=== PATIENT | female | born 1965 | race African-American/Black ===

== ENCOUNTER 2020-12-09 09:49 | Emergency (ER) | payer MEDICAID ==
[~2020-12-09] VITALS: Ht 172.7 cm; Wt 110.0 kg
[2020-12-09 10:36] LABS: BASOPHILS % 0.6 % (0.0-2.0); EOSINOPHILS % 2.9 % (0.0-5.0); HEMATOCRIT. 29.1 % (36.0-48.0); HEMOGLOBIN. 9.2 g/dL (12.0-16.0); LYMPHOCYTES % 18.8 % (20.0-50.0); MEAN CORPUSCULAR HEMOGLOBIN 25.7 pg (28.0-32.0); MEAN CORPUSCULAR VOLUME 81.7 fL (81.0-99.0); MONOCYTES % 8.8 % (2.0-8.0); NEUTROPHILS % 68.9 % (40.0-76.0); PLATELET 275 x1000/uL (130-400); RED BLOOD CELL COUNT 3.57 mill/uL (4.2-5.4); RED CELL DISTRIBUTION WIDTH 16.5 % (11.6-14.6)
[2020-12-09 10:40] LABS: CHLORIDE 110 mEq/L (98-107)
[2020-12-09 13:08] VITALS: BP 196/86
== END 2020-12-09 14:27 | disposition home or self-care (01) ==
LOC: ER 09:49
DX: E11.649 Type 2 diabetes mellitus with hypoglycemia without coma (principal); E87.5 Hyperkalemia; I11.9 Hypertensive heart disease without heart failure; J84.9 Interstitial pulmonary disease, unspecified; D64.9 Anemia, unspecified; Z79.4 Long term (current) use of insulin
CPT/HCPCS: 36415; 71045; 80053; 82962; 84484; 85025; 93005; 99285

== ENCOUNTER 2020-12-14 19:44 | Emergency (ER) | payer MEDICAID ==
[~2020-12-14] VITALS: Ht 167.6 cm; Wt 100.0 kg
[2020-12-14 21:13] LABS: BASOPHILS % 0.5 % (0.0-2.0); EOSINOPHILS % 1.3 % (0.0-5.0); HEMATOCRIT. 27.9 % (36.0-48.0); HEMOGLOBIN. 8.9 g/dL (12.0-16.0); LYMPHOCYTES % 12.5 % (20.0-50.0); MEAN CORPUSCULAR HEMOGLOBIN 26.1 pg (28.0-32.0); MEAN CORPUSCULAR VOLUME 81.4 fL (81.0-99.0); MEAN PLATELET VOLUME 8.8 fl (7.4-10.4); MONOCYTES % 7.4 % (2.0-8.0); NEUTROPHILS % 78.3 % (40.0-76.0); PLATELET 253 x1000/uL (130-400); RED BLOOD CELL COUNT 3.43 mill/uL (4.2-5.4); RED CELL DISTRIBUTION WIDTH 16.5 % (11.6-14.6)
[2020-12-14 21:18] LABS: CHLORIDE 112 mEq/L (98-107)
[2020-12-15 00:11] VITALS: BP 168/74
== END 2020-12-15 00:12 | disposition home or self-care (01) ==
LOC: ER 19:44
DX: E11.649 Type 2 diabetes mellitus with hypoglycemia without coma (principal); D64.9 Anemia, unspecified; I10 Essential (primary) hypertension
CPT/HCPCS: 36415; 80053; 82962; 85025; 93005; 99284

== ENCOUNTER 2023-08-15 19:03 | Emergency (ER) | payer SELFPAY ==
[~2023-08-15] VITALS: Ht 165.1 cm; Wt 70.0 kg
[2023-08-15 19:05] VITALS: O2SAT 99
[2023-08-15 20:28] LABS: BASOPHILS % 0.5 % (0.0-2.0); EOSINOPHILS % 3.9 % (0.0-5.0); HEMOGLOBIN. 10.4 g/dL (12.0-16.0); LYMPHOCYTES % 29.4 % (20.0-50.0); MEAN CORPUSCULAR HEMOGLOBIN 26.3 pg (28.0-32.0); MEAN CORPUSCULAR HGB CONC 30.7 g/dL (31.0-37.0); MEAN CORPUSCULAR VOLUME 85.6 fL (81.0-99.0); MEAN PLATELET VOLUME 9.4 fl (7.4-10.4); MONOCYTES % 9.7 % (2.0-8.0); NEUTROPHILS % 56.5 % (40.0-76.0); PLATELET 266 x1000/uL (130-400); RED BLOOD CELL COUNT 3.97 mill/uL (4.2-5.4); RED CELL DISTRIBUTION WIDTH 14.2 % (11.6-14.6); WHITE BLOOD COUNT 4.6 x1000/uL (4.5-11.0)
[2023-08-15] MEDS ORDERED: DEXTROSE 10% WATER 500 ML IV ONE (20:30)
[2023-08-15 20:41] LABS: ALANINE AMINOTRANSFERASE 16 IU/L (10-49); ALBUMIN 3.9 g/dL (3.2-4.8); ASPARTATE AMINOTRANSFERASE 24 IU/L (<34); BILIRUBIN TOTAL 0.5 mg/dL (0.1-1.0); CALCIUM 9.4 mg/dL (8.7-10.4); CARBON DIOXIDE 25 mEq/L (21-32); CHLORIDE 111 mEq/L (98-107); PROTEIN TOTAL 7.8 g/dL (6.0-8.3); SODIUM 142 mEq/L (136-145); UREA NITROGEN BLOOD 35 mg/dL (9-23)
[2023-08-15 20:50] LABS: GLUCOSE 39 mg/dL (70-105)
[2023-08-15] MEDS ORDERED: AMLODIPINE 5MG TABLET PO ONE ×2 (21:45→23:00)
[2023-08-15 21:59] VITALS: TEMP 98.3
[2023-08-15 23:24] VITALS: BP 213/112; PULSE 94; RESP 18
== END 2023-08-15 23:58 | disposition home or self-care (01) ==
LOC: ER 19:03
DX: E11.649 Type 2 diabetes mellitus with hypoglycemia without coma (principal); E11.9 Type 2 diabetes mellitus without complications; I16.0 Hypertensive urgency
CPT/HCPCS: 36415; 80053; 82962; 85025; 96365; 99284

== ENCOUNTER 2024-12-10 14:44 | Inpatient (IN) | payer MEDICARE, MEDICAID ==
[~2024-12-10] VITALS: Ht 170.2 cm; Wt 83.7 kg
[~2024-12-10 14:44] MED LIST: AMLO5TAB88; ATOR-2 PO; EMPA25TA; INSU100I28 SUBCUT; ISOS10TA2 PO; LABE300T36 PO; LISI10TA26 PO; NIFE90TA69; SACU1TAB PO; SEMA0.258; SODI650T PO
[2024-12-10 15:35] LABS: BASOPHILS % 0.8 % (0.0-2.0); EOSINOPHILS % 4.2 % (0.0-5.0); HEMATOCRIT. 23.7 % (36.0-48.0); HEMOGLOBIN. 7.4 g/dL (12.0-16.0); LYMPHOCYTES % 22.4 % (20.0-50.0); MEAN CORPUSCULAR HEMOGLOBIN 26.3 pg (28.0-32.0); MEAN CORPUSCULAR HGB CONC 31.2 g/dL (31.0-37.0); MEAN CORPUSCULAR VOLUME 84.5 fL (81.0-99.0); MEAN PLATELET VOLUME 9.3 fl (7.4-10.4); MONOCYTES % 8.7 % (2.0-8.0); NEUTROPHILS % 63.9 % (40.0-76.0); PLATELET 291 x1000/uL (130-400); RED BLOOD CELL COUNT 2.81 mill/uL (4.2-5.4)
[2024-12-10 15:41] LABS: CHLORIDE 109 mEq/L (98-107); POTASSIUM 4.3 mEq/L (3.5-5.1); SODIUM 140 mEq/L (136-145)
[2024-12-10 15:42] LABS: CARBON DIOXIDE 24 mEq/L (21-32)
[2024-12-10 15:43] LABS: CALCIUM 8.9 mg/dL (8.7-10.4)
[2024-12-10 15:47] LABS: GLUCOSE 76 mg/dL (70-105); UREA NITROGEN BLOOD 37 mg/dL (9-23)
[2024-12-10 15:49] LABS: TROPONIN I HIGH SENSITIVITY 11 ng/L (3.0-34)
[2024-12-10] MEDS ORDERED: FERR-63 PO (16:21)
[2024-12-10] MEDS ORDERED: SACU1TAB7 PO (16:21)
[2024-12-10] MEDS ORDERED: AMLO5TAB88 PO (16:22)
[2024-12-10] MEDS ORDERED: EMPA25TA PO (16:22)
[2024-12-10] MEDS ORDERED: EMPAGLIFLOZIN 10MG TABLET PO SCH (17:00)
[2024-12-10] MEDS: FUROSEMIDE 40MG/4ML VIAL IVP SCH (18:13)
[2024-12-10] MEDS: AMLODIPINE 5MG TABLET PO SCH (18:13)
[2024-12-10] MEDS ORDERED: ACETAMINOPHEN 325MG TABLET PO PRN (19:15)
[2024-12-10 20:29] LABS: INR 1.1; PROTHROMBIN TIME 11.6 sec (9.6-11.0)
[2024-12-10 20:30] LABS: ALANINE AMINOTRANSFERASE 14 IU/L (10-49); ALBUMIN 3.2 g/dL (3.2-4.8); ASPARTATE AMINOTRANSFERASE 15 IU/L (<34); BILIRUBIN DIRECT 0.3 mg/dL (<=3.0); BILIRUBIN TOTAL 0.9 mg/dL (0.1-1.0); PROTEIN TOTAL 6.3 g/dL (6.0-8.3)
[2024-12-10] MEDS ORDERED: SACUBITRIL/VALSARTAN 24MG/26MG TABLET PO SCH (21:00)
[2024-12-10] MEDS: LABETALOL HCL 100MG TABLET PO SCH (21:47)
[2024-12-10] MEDS: ENOXAPARIN 30MG/0.3ML SYR SUBCUT SCH (21:47)
[2024-12-10] MEDS: ATORVASTATIN CALCIUM 40MG TABLET PO SCH (21:47)
[2024-12-10 22:29] VITALS: BP 178/74; PULSE 68; RESP 21; TEMP 36.3; O2SAT 87
[2024-12-10 22:45] VITALS: PULSE 68; RESP 18; O2SAT 99
[2024-12-10 23:04] VITALS: BP 175/71; PULSE 66; RESP 19; O2SAT 95
[2024-12-10] MEDS: SACUBITRIL/VALSARTAN 49MG/51MG TABLET PO SCH (23:41)
[2024-12-11] VITALS (10 sets, daily range): BP systolic 145–182; BP diastolic 67–95; PULSE 67–78; RESP 0–22; TEMP 36.7–36.9; O2SAT 95–99
[2024-12-11] MEDS: CLONIDINE 0.1MG TABLET PO PRN (05:07)
[2024-12-11 07:17] LABS: BASOPHILS % 0.9 % (0.0-2.0); EOSINOPHILS % 4.6 % (0.0-5.0); HEMATOCRIT. 25.7 % (36.0-48.0); HEMOGLOBIN. 7.8 g/dL (12.0-16.0); LYMPHOCYTES % 22.4 % (20.0-50.0); MEAN CORPUSCULAR HEMOGLOBIN 25.8 pg (28.0-32.0); MEAN CORPUSCULAR HGB CONC 30.5 g/dL (31.0-37.0); MEAN CORPUSCULAR VOLUME 84.6 fL (81.0-99.0); MEAN PLATELET VOLUME 9.5 fl (7.4-10.4); MONOCYTES % 8.1 % (2.0-8.0); PLATELET 282 x1000/uL (130-400); RED BLOOD CELL COUNT 3.03 mill/uL (4.2-5.4); WHITE BLOOD COUNT 4.1 x1000/uL (4.5-11.0)
[2024-12-11 07:42] LABS: FERRITIN 169 ng/mL (10-291); FOLIC ACID (FOLATE) SERUM 6.13 ng/mL (>5.38); VITAMIN B12 SERUM 929 pg/mL (211-911)
[2024-12-11 08:16] LABS: CARBON DIOXIDE 24 mEq/L (21-32); CHLORIDE 109 mEq/L (98-107); POTASSIUM 4.3 mEq/L (3.5-5.1); SODIUM 142 mEq/L (136-145)
[2024-12-11 08:17] LABS: CALCIUM 8.9 mg/dL (8.7-10.4)
[2024-12-11 08:22] LABS: UREA NITROGEN BLOOD 35 mg/dL (9-23)
[2024-12-11 08:23] LABS: ALANINE AMINOTRANSFERASE 14 IU/L (10-49); ASPARTATE AMINOTRANSFERASE 15 IU/L (<34)
[2024-12-11 08:24] LABS: ALBUMIN 3.1 g/dL (3.2-4.8); TOTAL IRON BINDING CAPACITY 229 ug/dl (250-425)
[2024-12-11 08:26] LABS: THYROID STIMULATING HORMONE 2.28 uIU/mL (0.55-4.78)
[2024-12-11] MEDS: EMPAGLIFLOZIN 10MG TABLET PO SCH (08:33)
[2024-12-11 08:46] LABS: GLUCOSE 44 mg/dL (70-105)
[2024-12-11 08:56] LABS: IRON 47 ug/dL (50-170)
[2024-12-11] MEDS ORDERED: DEXTROSE 50% WATER 50ML SYRINGE IV PRN (09:00)
[2024-12-11] MEDS: BLOOD SUGAR DIAGNOSTIC STRIP TEST SCH (11:20)
[2024-12-11 13:18] LABS: CLARITY URINE CLOUDY (CLEAR); COLOR URINE YELLOW (YELLOW); PH URINE 7.5 (4.5-8.0)
[2024-12-11 13:19] LABS: GLUCOSE URINE 1+ (NEGATIVE); KETONES URINE NEGATIVE (NEGATIVE); LEUKOCYTE ESTERASE URINE NEGATIVE (NEGATIVE); NITRITE URINE NEGATIVE (NEGATIVE); OCCULT BLOOD URINE NEGATIVE (NEGATIVE); PROTEIN URINE 2+ (NEGATIVE); UROBILINOGEN URINE 0.2 E.U./dL (0.2-1.0)
[2024-12-11 13:46] LABS: BACTERIA URINE 4+; RBC URINE NONE SEEN /hpf (0-2); SQUAMOUS EPITHELIAL CELL URINE NONE SEEN /lpf (RARE/1+); WBC URINE 0-2 /hpf (0-2)
[2024-12-11] MEDS: ASCORBIC ACID 250 MG TABLET PO SCH (17:44)
[2024-12-11] MEDS: FERROUS SULFATE 325MG TABLET PO SCH (17:45)
[2024-12-12] VITALS: BP 182/72; PULSE 72; RESP 22; TEMP 37.2; O2SAT 98
[2024-12-12] MEDS: HYDRALAZINE 20MG/ML VIAL IV PRN (03:59)
[2024-12-12 04:00] VITALS: BP 170/64; PULSE 67; RESP 19; TEMP 37; O2SAT 99
[2024-12-12 07:10] LABS: BASOPHILS % 0.8 % (0.0-2.0); EOSINOPHILS % 5.6 % (0.0-5.0); HEMATOCRIT. 23.2 % (36.0-48.0); HEMOGLOBIN. 7.3 g/dL (12.0-16.0); LYMPHOCYTES % 26.4 % (20.0-50.0); MEAN CORPUSCULAR HEMOGLOBIN 26.7 pg (28.0-32.0); MEAN CORPUSCULAR HGB CONC 31.5 g/dL (31.0-37.0); MEAN CORPUSCULAR VOLUME 84.6 fL (81.0-99.0); MEAN PLATELET VOLUME 9.3 fl (7.4-10.4); MONOCYTES % 9.7 % (2.0-8.0); NEUTROPHILS % 57.5 % (40.0-76.0); PLATELET 266 x1000/uL (130-400); RED BLOOD CELL COUNT 2.75 mill/uL (4.2-5.4); RED CELL DISTRIBUTION WIDTH 16.9 % (11.6-14.6); WHITE BLOOD COUNT 4.8 x1000/uL (4.5-11.0)
[2024-12-12 07:26] LABS: POTASSIUM 4.3 mEq/L (3.5-5.1)
[2024-12-12 07:28] LABS: CALCIUM 8.6 mg/dL (8.7-10.4)
[2024-12-12 07:32] LABS: CREATININE 2.2 mg/dL (0.6-1.0)
[2024-12-12 08:00] VITALS: BP 150/60; PULSE 68; RESP 13; TEMP 36.7; O2SAT 99
[2024-12-12] MEDS: LABETALOL HCL 100MG TABLET PO SCH (11:32)
[2024-12-12] MEDS: AMLODIPINE 5MG TABLET PO NR (11:33)
[2024-12-12 12:00] VITALS: BP 155/70; PULSE 67; RESP 27; TEMP 36.7; O2SAT 99
[2024-12-12 16:00] VITALS: BP 158/71; PULSE 97; RESP 27; TEMP 36.8; O2SAT 99
[2024-12-12 19:34] VITALS: BP 177/81; PULSE 72; RESP 16; TEMP 36.9; O2SAT 97
[2024-12-12] MEDS ORDERED: DEXTROSE 50% WATER 50ML SYRINGE IV PRN ×2 (21:45)
[2024-12-13] VITALS (7 sets, daily range): BP systolic 116–163; BP diastolic 59–72; PULSE 74–79; RESP 20–28; TEMP 36.5–37.3; O2SAT 88–99
[2024-12-13 06:14] LABS: BASOPHILS % 0.6 % (0.0-2.0); EOSINOPHILS % 3.2 % (0.0-5.0); HEMATOCRIT. 23.6 % (36.0-48.0); HEMOGLOBIN. 7.5 g/dL (12.0-16.0); LYMPHOCYTES % 16.8 % (20.0-50.0); MEAN CORPUSCULAR HEMOGLOBIN 26.7 pg (28.0-32.0); MEAN CORPUSCULAR HGB CONC 31.6 g/dL (31.0-37.0); MEAN CORPUSCULAR VOLUME 84.5 fL (81.0-99.0); MEAN PLATELET VOLUME 9.8 fl (7.4-10.4); MONOCYTES % 8.8 % (2.0-8.0); NEUTROPHILS % 70.6 % (40.0-76.0); PLATELET 259 x1000/uL (130-400); RED BLOOD CELL COUNT 2.79 mill/uL (4.2-5.4); RED CELL DISTRIBUTION WIDTH 17.4 % (11.6-14.6); WHITE BLOOD COUNT 6.3 x1000/uL (4.5-11.0)
[2024-12-13 06:20] LABS: CALCIUM 9.2 mg/dL (8.7-10.4); CARBON DIOXIDE 25 mEq/L (21-32); CHLORIDE 107 mEq/L (98-107); POTASSIUM 4.4 mEq/L (3.5-5.1); SODIUM 142 mEq/L (136-145)
[2024-12-13 06:25] LABS: CREATININE 2.7 mg/dL (0.6-1.0); GLUCOSE 158 mg/dL (70-105)
[2024-12-13 06:26] LABS: UREA NITROGEN BLOOD 42 mg/dL (9-23)
[2024-12-13] MEDS: BLOOD SUGAR DIAGNOSTIC STRIP TEST SCH (06:45)
[2024-12-13] MEDS: INSULIN LISPRO 100 UNITS/ML SUBCUT SCH (06:47)
[2024-12-13] MEDS ORDERED: BLOOD SUGAR DIAGNOSTIC STRIP TEST SCH (06:50)
[2024-12-13] MEDS: FUROSEMIDE 40MG TABLET PO SCH ×2 (08:18→17:30)
[2024-12-13] MEDS: AMLODIPINE 10MG TABLET PO SCH (08:18)
[2024-12-13] MEDS ORDERED: AMLO10TA80 PO (09:25)
[2024-12-13] MEDS ORDERED: LIP40 PO (09:25)
[2024-12-13] MEDS ORDERED: ASCO-494 PO (09:25)
[2024-12-13] MEDS ORDERED: FURO40TA5 MT (09:25)
[2024-12-13] MEDS ORDERED: HYDR50TA40 MT (09:25)
[2024-12-13 12:50] LABS: HEMATOCRIT 22.8 % (36.0-48.0); MEAN CORPUSCULAR HEMOGLOBIN 25.8 pg (28.0-32.0); MEAN CORPUSCULAR HGB CONC 30.8 g/dL (31.0-37.0); MEAN CORPUSCULAR VOLUME 83.5 fL (81.0-99.0); PLATELET 264 x1000/uL (130-400); RED BLOOD CELL COUNT 2.73 mill/uL (4.2-5.4); RED CELL DISTRIBUTION WIDTH 17.5 % (11.6-14.6); WHITE BLOOD COUNT 5.4 x1000/uL (4.5-11.0)
[2024-12-14] VITALS: BP 132/57; PULSE 81; RESP 19; TEMP 36.9; O2SAT 95
[2024-12-14 04:00] VITALS: BP 157/66; PULSE 83; RESP 16; TEMP 36.8; O2SAT 100
[2024-12-14 08:00] VITALS: BP 163/72; PULSE 79; RESP 24; TEMP 37.1; O2SAT 98
[2024-12-14 10:02] LABS: BASOPHILS % 0.6 % (0.0-2.0); EOSINOPHILS % 3.6 % (0.0-5.0); HEMATOCRIT. 23.6 % (36.0-48.0); HEMOGLOBIN. 7.2 g/dL (12.0-16.0); LYMPHOCYTES % 14.8 % (20.0-50.0); MEAN CORPUSCULAR HEMOGLOBIN 25.9 pg (28.0-32.0); MEAN CORPUSCULAR HGB CONC 30.6 g/dL (31.0-37.0); MEAN CORPUSCULAR VOLUME 84.5 fL (81.0-99.0); MEAN PLATELET VOLUME 9.2 fl (7.4-10.4); MONOCYTES % 9.8 % (2.0-8.0); NEUTROPHILS % 71.2 % (40.0-76.0); PLATELET 264 x1000/uL (130-400); RED BLOOD CELL COUNT 2.79 mill/uL (4.2-5.4); WHITE BLOOD COUNT 6.1 x1000/uL (4.5-11.0)
[2024-12-14 10:18] LABS: POTASSIUM 4.3 mEq/L (3.5-5.1)
[2024-12-14 10:24] LABS: CREATININE 2.7 mg/dL (0.6-1.0)
[2024-12-14 12:00] VITALS: BP 148/65; PULSE 77; RESP 28; TEMP 37.2; O2SAT 93
[2024-12-14 16:00] VITALS: BP 153/66; PULSE 81; RESP 25; TEMP 37.1; O2SAT 98
[2024-12-14] MEDS: FUROSEMIDE 40MG/4ML VIAL IVP SCH (16:14)
[2024-12-14 20:00] VITALS: BP 167/80; PULSE 89; RESP 18; O2SAT 95
[2024-12-15] VITALS (9 sets, daily range): BP systolic 129–171; BP diastolic 64–75; PULSE 74–90; RESP 17–30; TEMP 36.9474–38.6; O2SAT 95–99
[2024-12-15] MEDS: ACETAMINOPHEN 325MG TABLET PO PRN (00:20)
[2024-12-15 06:55] LABS: BASOPHILS % 0.6 % (0.0-2.0); EOSINOPHILS % 3.9 % (0.0-5.0); LYMPHOCYTES % 19.1 % (20.0-50.0); MEAN CORPUSCULAR HEMOGLOBIN 26.7 pg (28.0-32.0); MEAN CORPUSCULAR HGB CONC 32.1 g/dL (31.0-37.0); MEAN CORPUSCULAR VOLUME 83.3 fL (81.0-99.0); MEAN PLATELET VOLUME 9.5 fl (7.4-10.4); MONOCYTES % 11.8 % (2.0-8.0); NEUTROPHILS % 64.6 % (40.0-76.0); PLATELET 232 x1000/uL (130-400); RED BLOOD CELL COUNT 2.63 mill/uL (4.2-5.4); WHITE BLOOD COUNT 5.5 x1000/uL (4.5-11.0)
[2024-12-15 07:18] LABS: POTASSIUM 4.2 mEq/L (3.5-5.1)
[2024-12-15 07:19] LABS: CALCIUM 8.9 mg/dL (8.7-10.4)
[2024-12-15 07:24] LABS: CREATININE 2.6 mg/dL (0.6-1.0)
[2024-12-15 08:02] LABS: HEMATOCRIT. 21.9 % (36.0-48.0)
[2024-12-16] VITALS: BP 165/70; PULSE 85; RESP 16; TEMP 36.8; O2SAT 98
[2024-12-16 04:00] VITALS: BP 148/63; PULSE 81; RESP 19; TEMP 36.5; O2SAT 98
[2024-12-16 07:43] LABS: BASOPHILS % 0.9 % (0.0-2.0); EOSINOPHILS % 6.2 % (0.0-5.0); HEMATOCRIT. 24.5 % (36.0-48.0); HEMOGLOBIN. 7.8 g/dL (12.0-16.0); LYMPHOCYTES % 22.6 % (20.0-50.0); MEAN CORPUSCULAR HEMOGLOBIN 26.7 pg (28.0-32.0); MEAN CORPUSCULAR HGB CONC 32.1 g/dL (31.0-37.0); MEAN CORPUSCULAR VOLUME 83.3 fL (81.0-99.0); MEAN PLATELET VOLUME 9.3 fl (7.4-10.4); MONOCYTES % 14.6 % (2.0-8.0); NEUTROPHILS % 55.7 % (40.0-76.0); PLATELET 242 x1000/uL (130-400); RED BLOOD CELL COUNT 2.94 mill/uL (4.2-5.4); RED CELL DISTRIBUTION WIDTH 16.4 % (11.6-14.6); WHITE BLOOD COUNT 4.7 x1000/uL (4.5-11.0)
[2024-12-16 08:00] VITALS: BP 144/62; PULSE 79; RESP 24; TEMP 36.7; O2SAT 95
[2024-12-16 08:01] LABS: POTASSIUM 3.9 mEq/L (3.5-5.1)
[2024-12-16 08:02] LABS: CALCIUM 8.9 mg/dL (8.7-10.4)
[2024-12-16 08:07] LABS: CREATININE 2.6 mg/dL (0.6-1.0)
[2024-12-16 12:05] VITALS: BP 145/67; PULSE 81; RESP 24; TEMP 36.8; O2SAT 91
[2024-12-16 16:00] VITALS: BP 149/63; PULSE 76; RESP 23; TEMP 36.7; O2SAT 97
[2024-12-16] MEDS: LACTULOSE 20G/30ML UDC PO NR (16:18)
[2024-12-16 20:00] VITALS: BP 152/70; PULSE 79; RESP 24; TEMP 37.1; O2SAT 98
[2024-12-16] MEDS: CARVEDILOL 6.25 MG TABLET PO SCH (21:27)
[2024-12-17] VITALS: BP 152/67; PULSE 78; RESP 22; TEMP 36.6; O2SAT 99
[2024-12-17 04:00] VITALS: BP 138/64; PULSE 68; RESP 18; TEMP 36.5; O2SAT 99
[2024-12-17 08:00] VITALS: BP 145/67; PULSE 81; RESP 15; TEMP 36.3; O2SAT 99
[2024-12-17] MEDS: POLYETHYLENE GLYCOL 3350 (17GM) 1 DOSE PACK PO SCH (09:00)
[2024-12-17 12:00] VITALS: BP 138/59; PULSE 71; RESP 23; TEMP 36.3; O2SAT 99
[2024-12-17 12:43] LABS: BASOPHILS % 0.8 % (0.0-2.0); EOSINOPHILS % 6.5 % (0.0-5.0); HEMATOCRIT. 26.5 % (36.0-48.0); HEMOGLOBIN. 8.4 g/dL (12.0-16.0); LYMPHOCYTES % 19.5 % (20.0-50.0); MEAN CORPUSCULAR HEMOGLOBIN 26.8 pg (28.0-32.0); MEAN CORPUSCULAR HGB CONC 31.7 g/dL (31.0-37.0); MEAN CORPUSCULAR VOLUME 84.5 fL (81.0-99.0); MEAN PLATELET VOLUME 9.6 fl (7.4-10.4); MONOCYTES % 12.9 % (2.0-8.0); NEUTROPHILS % 60.3 % (40.0-76.0); PLATELET 254 x1000/uL (130-400); RED BLOOD CELL COUNT 3.14 mill/uL (4.2-5.4); RED CELL DISTRIBUTION WIDTH 17.1 % (11.6-14.6); WHITE BLOOD COUNT 3.9 x1000/uL (4.5-11.0)
[2024-12-17 12:47] LABS: POTASSIUM 4.2 mEq/L (3.5-5.1)
[2024-12-17 12:48] LABS: CALCIUM 8.8 mg/dL (8.7-10.4)
[2024-12-17 12:53] LABS: CREATININE 2.8 mg/dL (0.6-1.0)
[2024-12-17] MEDS: HYDRALAZINE HCL 25MG TABLET PO SCH (13:07)
[2024-12-17 16:00] VITALS: BP 124/59; PULSE 74; RESP 20; TEMP 36.9; O2SAT 100
[2024-12-17 20:00] VITALS: BP 150/72; PULSE 74; RESP 20; TEMP 36.9; O2SAT 98
[2024-12-18] VITALS (7 sets, daily range): BP systolic 133–162; BP diastolic 52–120; PULSE 72–79; RESP 13–23; TEMP 36.6–37.2; O2SAT 98–100
[2024-12-18 07:13] LABS: CHLORIDE 111 mEq/L (98-107); POTASSIUM 3.8 mEq/L (3.5-5.1); SODIUM 147 mEq/L (136-145)
[2024-12-18 07:14] LABS: CARBON DIOXIDE 28 mEq/L (21-32)
[2024-12-18 07:19] LABS: CREATININE 2.8 mg/dL (0.6-1.0); GLUCOSE 98 mg/dL (70-105); UREA NITROGEN BLOOD 52 mg/dL (9-23)
[2024-12-18 07:21] LABS: PHOSPHORUS 4.1 mg/dL (2.5-4.9)
[2024-12-18 07:24] LABS: BASOPHILS % 0.8 % (0.0-2.0); DIFFERENTIAL COMMENT 0; EOSINOPHILS % 7.3 % (0.0-5.0); HEMOGLOBIN. 8.7 g/dL (12.0-16.0); LYMPHOCYTES % 34.6 % (20.0-50.0); MEAN CORPUSCULAR HEMOGLOBIN 26.2 pg (28.0-32.0); MEAN CORPUSCULAR HGB CONC 31.2 g/dL (31.0-37.0); MEAN CORPUSCULAR VOLUME 84.2 fL (81.0-99.0); MONOCYTES % 11.9 % (2.0-8.0); NEUTROPHILS % 45.4 % (40.0-76.0); PLATELET 208 x1000/uL (130-400); RED BLOOD CELL COUNT 3.33 mill/uL (4.2-5.4); RED CELL DISTRIBUTION WIDTH 16.9 % (11.6-14.6); WHITE BLOOD COUNT 4.5 x1000/uL (4.5-11.0)
[2024-12-18 07:41] LABS: PROTHROMBIN TIME 10.9 sec (9.6-11.0)
[2024-12-18] MEDS: HYDRALAZINE HCL 25MG TABLET PO SCH (13:29)
[2024-12-19] VITALS: BP 141/89; PULSE 75; RESP 21; TEMP 37.3; O2SAT 100
[2024-12-19 04:00] VITALS: BP 130/92; PULSE 70; RESP 18; TEMP 36.8; O2SAT 100
[2024-12-19 08:00] VITALS: BP 121/42; PULSE 78; RESP 21; TEMP 36.6; O2SAT 96
[2024-12-19] MEDS: FERROUS SULFATE 325MG TABLET PO SCH (08:36)
[2024-12-19 12:00] VITALS: BP 120/60; PULSE 74; RESP 16; TEMP 36.7; O2SAT 97
[2024-12-19 12:16] LABS: POTASSIUM 4.1 mEq/L (3.5-5.1)
[2024-12-19 12:17] LABS: CALCIUM 8.8 mg/dL (8.7-10.4)
[2024-12-19 12:22] LABS: CREATININE 2.7 mg/dL (0.6-1.0)
[2024-12-19 13:12] LABS: BASOPHILS % 1.2 % (0.0-2.0); EOSINOPHILS % 6.2 % (0.0-5.0); HEMATOCRIT. 28.4 % (36.0-48.0); HEMOGLOBIN. 8.8 g/dL (12.0-16.0); MEAN CORPUSCULAR HEMOGLOBIN 26.1 pg (28.0-32.0); MEAN CORPUSCULAR HGB CONC 31.1 g/dL (31.0-37.0); MEAN CORPUSCULAR VOLUME 84.1 fL (81.0-99.0); MEAN PLATELET VOLUME 9.2 fl (7.4-10.4); MONOCYTES % 11.3 % (2.0-8.0); NEUTROPHILS % 56.3 % (40.0-76.0); PLATELET 255 x1000/uL (130-400); RED BLOOD CELL COUNT 3.38 mill/uL (4.2-5.4); RED CELL DISTRIBUTION WIDTH 16.2 % (11.6-14.6); WHITE BLOOD COUNT 4.3 x1000/uL (4.5-11.0)
[2024-12-19] MEDS ORDERED: COR6 PO (13:22)
[2024-12-19 16:00] VITALS: BP 121/55; PULSE 74; RESP 23; TEMP 36.8; O2SAT 95
[2024-12-19 16:51] VITALS: BP 121/55; PULSE 74; TEMP 98.2; O2SAT 95
== END 2024-12-19 19:50 | DRG 291 ==
LOC: ER 14:44 → EDBEDREQ 15:42 → EDBEDREQTM 16:43 → EDBEDREQ 21:03 → 3WST 22:22
PROVIDERS: ADMIT Family Medicine Adult Medicine; ATTEND Family Medicine Adult Medicine
PROC: 30233N1 Transfusion of Nonautologous Red Blood Cells into Peripheral Vein, Percutaneous Approach (ICD-10-PCS; 2024-12-15)
PROC: 0DB78ZX Excision of Stomach, Pylorus, Via Natural or Artificial Opening Endoscopic, Diagnostic (ICD-10-PCS; principal; 2024-12-18)
DX: I13.0 Hypertensive heart and chronic kidney disease with heart failure and stage 1 through stage 4 chronic kidney disease, or unspecified chronic kidney disease (principal); I50.23 Acute on chronic systolic (congestive) heart failure; J96.00 Acute respiratory failure, unspecified whether with hypoxia or hypercapnia; I42.9 Cardiomyopathy, unspecified; E11.22 Type 2 diabetes mellitus with diabetic chronic kidney disease; D63.8 Anemia in other chronic diseases classified elsewhere; E61.1 Iron deficiency; E78.5 Hyperlipidemia, unspecified; N18.9 Chronic kidney disease, unspecified; Z79.84 Long term (current) use of oral hypoglycemic drugs; Z79.899 Other long term (current) drug therapy
CPT/HCPCS: 36415; 71045; 80048; 80053; 80076; 81003; 82270; 82607; 82728; 82746; 82962; 83036; 83540; 83550; 83615; 83735; 83880; 84100; 84425; 84443; 84484; 85025; 85027; 85044; 86850; 86900; 86920; 88305; 88312; 88313; 93005; 93306; 93970; 96372; 96374; 97162; 99291; A4606; J0360; J1650; J1815; J1940; P9016